=== PATIENT | female | born 1985 | race Native Hawaiian/Other Pacific Islander ===

== ENCOUNTER 2018-02-01 16:18 | Emergency (ER) | payer MEDICAID ==
[2018-02-01] MEDS ORDERED: KETOROLAC 30 MG/ML VIAL IVP ONE (16:23)
[2018-02-01] MEDS ORDERED: ORPHENADRINE CITRATE 60MG/2ML VIAL IM ONE (16:23)
[2018-02-01] MEDS ORDERED: METHYLPREDNISOLONE PF 125MG/VIAL IVP ONE (16:23)
[2018-02-01] MEDS ORDERED: KETOROLAC 30 MG/ML VIAL IM ONE (16:29)
[2018-02-01] MEDS ORDERED: METHYLPREDNISOLONE 80MG/VIAL IM ONE (16:30)
--- NOTE | 2018-02-01 16:30 | Emergency Department Record ---
History of Present Illness - General Chief Complaint: Back Pain/Injury Stated Complaint: BACK PAIN Time Seen by Provider: 02/01/18 16:21 Source: Patient, EMS Mode of Arrival: Stretcher Limitations: No limitations - History of Present Illness Initial Comments: 32 yo female presents with lower back pain since Thursday. No recent injury. The onset has been gradual. She has had similar pain in the past that lead to physical therapy. Her PCP is through the [facility]. No weakness, numbness or tingling. No changes in bowel or bladder function. No incontinence or retention. No prior surgery. Last MRI was 04/2016: Minor L4-5 disc bulge, mild bilateral facet narrowing with possible R 5th nerve impingement. No fever or illness. No prior surgery on the spine per the patient. MD Complaint: Back pain -: Days(s) (5) Place: Home Radiation: None Severity: Severe Quality: Aching Consistency: Constant Improves With: Immobilization Worsens With: Movement Context: Other (No injury, gradual onset) Associated Symptoms: Denies other symptoms - Related Data Previous Rx's Medication Instructions Recorded Hydrocodone/APAP 5/325Mg [[place] 1 each PO Q6H #12 tab 02/01/18 5Mg/325Mg] Methylprednisolone [Medrol Dose 4 mg PO DAILY #1 tab.ds.pk 02/01/18 Pack] Allergies Allergy/AdvReac Type Severity Reaction Status Date / Time No Known Drug Allergies Allergy Verified 02/01/18 16:25 Review of Systems Constitutional: Denies: Chills, Fever, Malaise, Weakness Eyes: Denies: Eye discharge ENT: Denies: Congestion, Throat pain Respiratory: Denies: Cough, Dyspnea Cardiovascular: Denies: Chest pain Endocrine: Denies: Fatigue Gastrointestinal: Denies: Abdominal pain, Diarrhea, Nausea, Vomiting Genitourinary: Denies: Dysuria, Incontinence, Retention Musculoskeletal: Reports: As per HPI, Back pain Skin: Denies: Bruising, Change in color, Rash Neurological: Denies: Headache, Numbness, Tingling, Weakness Psychiatric: Denies: Anxiety Hematological/Lymphatic: Denies: Blood Clots, Easy bleeding, Easy bruising, Swollen glands Past Medical History - SOCIAL HISTORY Smoking Status: Former smoker - RESPIRATORY Hx Respiratory Disorders: No - CARDIOVASCULAR Hx Cardio Disorders: No - NEURO Hx Neuro Disorders: No - GI Hx GI Disorders: No - Hx Genitourinary Disorders: No - ENDOCRINE Hx Endocrine Disorders: No - MUSCULOSKELETAL Hx Musculoskeletal Disorders: No - PSYCH Hx Depression: Yes (bipolar) - HEMATOLOGY/ONCOLOGY Hx Hematology/Oncology Disorders: No Family Medical History Hx Cancer: Grandparents Physical Exam - General General Appearance: Alert, Oriented x3, Cooperative, No acute distress Limitations: No limitations - Head Head exam: Atraumatic, Normal inspection - Eye Eye exam: Normal appearance. negative: Conjunctival injection - ENT ENT exam: Normal exam Ear exam: Normal external inspection Nasal Exam: Normal inspection Mouth exam: Normal external inspection - Neck Neck exam: Normal inspection - Respiratory Respiratory exam: Normal lung sounds bilaterally. negative: Respiratory distress - Cardiovascular Cardiovascular Exam: Regular rate, Normal rhythm, Normal heart sounds - GI/Abdominal GI/Abdominal exam: Soft. negative: Tenderness - Rectal Rectal exam: Deferred - exam: Deferred - Extremities Extremities exam: Normal inspection, Full ROM, Normal capillary refill. negative: Pedal edema, Tenderness - Back Back exam: Reports: Muscle spasm, Paraspinal tenderness. Denies: Full ROM - Neurological Neurological exam: Alert, Oriented X3. negative: Motor sensory deficit - Psychiatric Psychiatric exam: Normal affect, Normal mood - Skin Skin exam: Dry, Intact, Normal color, Warm Course - Reevaluation(s) Reevaluation #1: 02/01/18 18:08 On recheck the pain is only mildly improved. 02/01/18 18:54 The patient is doing much better. She is up and ambulating with pain that is much better controlled. We discussed close follow, she will call her PCP and her physical therapist tomorrow We discussed reasons to return as well. Disposition Disposition: Discharge Clinical Impression: Sciatica Qualifiers: Laterality: left Qualified Code(s): M54.32 - Sciatica, left side Disposition: Home, Self-Care Condition: (1) Good Instructions: Sciatica (ED) Additional Instructions: Call your doctor and therapist tomorrow Return to the ED if the pain does not remain controlled. Prescriptions: Hydrocodone/APAP 5/325Mg [[place] 5Mg/325Mg] 1 each PO Q6H #12 tab Methylprednisolone [Medrol Dose Pack] 4 mg PO DAILY #1 tab.ds.pk Forms: Patient Portal Access Time of Disposition: 19:00 Quality - Quality Measures Quality Measures: N/A - Blood Pressure Screening Does Patient Have Any of the Following: No Blood Pressure Classification: Pre-Hypertensive BP Reading Systolic Measurement: 136 Diastolic Measurement: 76 Screening for High Blood Pressure: < Pre-Hypertensive BP, F/U Documented > [ G8950] Pre-Hypertensive Follow-up Interventions: Referral to alternative/primary care provider.
[2018-02-01] MEDS ORDERED: HYDROMORPHONE HCL 2 MG/ML VIAL IVP ONE (18:15)
[2018-02-01] MEDS ORDERED: HYDROCODONE/APAP 5/325MG TABLET PO ONE (18:53)
--- NOTE | 2018-02-02 11:34 | Emergency Department Record ---
History of Present Illness - General Chief Complaint: Back Pain/Injury Stated Complaint: BACK PAIN Time Seen by Provider: 02/01/18 16:21 Source: Patient, EMS Limitations: No limitations - History of Present Illness Onset/Timin -: Days(s) (5) Similar Symptoms Previously: Yes Place: Home Radiation: None Severity: Severe Severity scale (1-10): 10 Quality: Aching Consistency: Constant Improves With: Immobilization Worsens With: Movement Context: Other (No injury, gradual onset) Associated Symptoms: Denies other symptoms - Related Data Previous Rx's Medication Instructions Recorded Hydrocodone/APAP 5/325Mg [[place] 1 each PO Q6H #12 tab 02/01/18 5Mg/325Mg] Methylprednisolone [Medrol Dose 4 mg PO DAILY #1 tab.ds.pk 02/01/18 Pack] Ondansetron [Zofran Odt] 4 mg PO Q8H #20 tab.rapdis 02/02/18 Allergies Allergy/AdvReac Type Severity Reaction Status Date / Time No Known Drug Allergies Allergy Verified 02/01/18 16:25 Travel Screening - Travel/Exposure Within Last 30 Days Have you traveled within the last 30 days?: No Review of Systems Constitutional: Denies: Chills, Fever, Malaise, Weakness Eyes: Denies: Eye discharge ENT: Denies: Congestion, Throat pain Respiratory: Denies: Cough, Dyspnea Cardiovascular: Denies: Chest pain Endocrine: Denies: Fatigue Gastrointestinal: Denies: Abdominal pain, Diarrhea, Nausea, Vomiting Genitourinary: Denies: Dysuria, Incontinence, Retention Musculoskeletal: Reports: As per HPI, Back pain Skin: Denies: Bruising, Change in color, Rash Neurological: Denies: Headache, Numbness, Tingling, Weakness Psychiatric: Denies: Anxiety Hematological/Lymphatic: Denies: Blood Clots, Easy bleeding, Easy bruising, Swollen glands Past Medical History - SOCIAL HISTORY Smoking Status: Former smoker - RESPIRATORY Hx Respiratory Disorders: No - CARDIOVASCULAR Hx Cardio Disorders: No - NEURO Hx Neuro Disorders: No - GI Hx GI Disorders: No - Hx Genitourinary Disorders: No - ENDOCRINE Hx Endocrine Disorders: No - MUSCULOSKELETAL Hx Musculoskeletal Disorders: No - PSYCH Hx Depression: Yes (bipolar) - HEMATOLOGY/ONCOLOGY Hx Hematology/Oncology Disorders: No Family Medical History Hx Cancer: Grandparents Physical Exam - General General Appearance: Alert, Oriented x3, Cooperative, No acute distress Limitations: No limitations - Head Head exam: Atraumatic, Normal inspection - Eye Eye exam: Normal appearance. negative: Conjunctival injection, Scleral icterus - ENT ENT exam: Normal exam Ear exam: Normal external inspection Nasal Exam: Normal inspection Mouth exam: Normal external inspection - Neck Neck exam: Normal inspection - Respiratory Respiratory exam: Normal lung sounds bilaterally. negative: Respiratory distress - Cardiovascular Cardiovascular Exam: Regular rate, Normal rhythm, Normal heart sounds - GI/Abdominal GI/Abdominal exam: Soft. negative: Tenderness - Rectal Rectal exam: Deferred - exam: Deferred - Extremities Extremities exam: Normal inspection, Full ROM. negative: Joint swelling, Pedal edema, Tenderness - Back Back exam: Reports: Muscle spasm, Paraspinal tenderness. Denies: CVA tenderness (R), CVA tenderness (L), Full ROM - Neurological Neurological exam: Alert, Oriented X3, Other (foot extension and flexion intact , no EHL weakness bilaterally, sensation intact, pain is reproduced with movement and improved if still). negative: Motor sensory deficit - Psychiatric Psychiatric exam: Normal affect, Normal mood. negative: Agitated, Anxious - Skin Skin exam: Dry, Intact, Normal color, Warm Course Vital Signs 02/01/18 02/01/18 16:20 19:16 Temperature 98.2 F 98.2 F Pulse Rate 80 81 Respiratory 16 16 Rate Blood Pressure 136/76 131/82 Pulse Ox 97 98 - Reevaluation(s) Reevaluation #1: 02/02/18 11:58 A prescription was called in for Zofran. This was accidentally omitted from yesterday's visit I informed Ms. Richter that I was contact Kierra Meneses of the Clinic to facilitate follow up I informed her that she may return if any concerns, uncontrolled pain or other new symptoms or needs. Disposition Disposition: Discharge Clinical Impression: Sciatica Qualifiers: Laterality: left Qualified Code(s): M54.32 - Sciatica, left side Disposition: Home, Self-Care Condition: (1) Good Instructions: Sciatica (ED) Additional Instructions: Call your doctor and therapist tomorrow Return to the ED if the pain does not remain controlled. Prescriptions: Hydrocodone/APAP 5/325Mg [[place] 5Mg/325Mg] 1 each PO Q6H #12 tab Methylprednisolone [Medrol Dose Pack] 4 mg PO DAILY #1 tab.ds.pk Ondansetron [Zofran Odt] 4 mg PO Q8H #20 tab.rapdis Forms: Patient Portal Access Quality - Quality Measures Quality Measures: N/A - Blood Pressure Screening Does Patient Have Any of the Following: No Blood Pressure Classification: Pre-Hypertensive BP Reading Systolic Measurement: 131 Diastolic Measurement: 82 Screening for High Blood Pressure: < Pre-Hypertensive BP, F/U Documented > [ G8950] Pre-Hypertensive Follow-up Interventions: Referral to alternative/primary care provider.
== END 2018-02-01 19:18 | disposition home or self-care (01) ==
LOC: ER 16:18
DX: M54.32 Sciatica, left side (principal); Z87.891 Personal history of nicotine dependence
CPT/HCPCS: 96372; 96374; 99284; J1040; J1885; J2360